=== PATIENT | female | born 1970 | race Caucasian/White ===

== ENCOUNTER 2022-03-25 09:00 | Outpatient (CLI) | payer OTHER ==
[2022-03-25] MEDS ORDERED: Iopamidol-370 76% 500 ML 1 ML ONE (14:52)
== END 2022-03-25 09:01 | disposition home or self-care (01) ==
LOC: BICCT 09:00
PROVIDERS: ATTEND Internal Medicine Gastroenterology
DX: K59.00 Constipation, unspecified (principal); R10.9 Unspecified abdominal pain; K86.2 Cyst of pancreas; K76.89 Other specified diseases of liver; R14.0 Abdominal distension (gaseous); N95.1 Menopausal and female climacteric states; K57.30 Diverticulosis of large intestine without perforation or abscess without bleeding; Z90.49 Acquired absence of other specified parts of digestive tract
CPT/HCPCS: 74177; Q9967